=== PATIENT | male | born 1950 | race Hispanic/Latino ===

== ENCOUNTER 2018-06-09 20:34 | Emergency (ER) | payer BC, OTHER ==
[~2018-06-09] VITALS: Ht 175.3 cm; Wt 86.2 kg
[2018-06-09] MEDS ORDERED: PANTOPRAZOLE 40 MG 10ML VIAL IV STA (21:13)
[2018-06-09] MEDS ORDERED: SODIUM CHLORIDE 0.9% 1000ML 1,000 ML IV STA ×2 (21:13→23:26)
[2018-06-09] MEDS ORDERED: ONDANSETRON HCL INJ 2 MG/ML VIAL IV STA (21:13)
[2018-06-09 21:35] LABS: BASOPHILS % 0.3 % (0.0-1.0); HEMATOCRIT 44.9 % (38.2-49.6); HEMOGLOBIN 15.5 g/dL (14.0-18.0); LYMPHOCYTES # (AUTO) 0.5 (1.0-3.2); MEAN CORPUSCULAR HEMOGLOBIN 29.1 pg (28-32); MEAN CORPUSCULAR HGB CONC 34.5 g/dL (31-35); MEAN CORPUSCULAR VOLUME 84.2 fL (81-99); MONOCYTES # (AUTO) 0.7 (0.2-0.8); MONOCYTES % 6.2 % (4.4-11.3); NEUTROPHILS # (AUTO) 10.3 (2.1-6.9); NEUTROPHILS % 89.2 % (38.7-80.0); PLATELET COUNT 142 x10e3/uL (140-360); RED BLOOD COUNT 5.33 x10e6/uL (4.3-5.7)
[2018-06-09 21:40] LABS: INR 1.23; PROTHROMBIN TIME 14.6 seconds (11.9-14.5)
[2018-06-09 21:41] LABS: PARTIAL THROMBOPLASTIN TIME 30.9 seconds (23.8-35.5)
[2018-06-09 21:50] LABS: ALBUMIN 3.6 g/dL (3.5-5.0); ALBUMIN/GLOBULIN RATIO 0.9 (0.8-2.0); ANION GAP 17.5 mmol/L (8-16); CALCIUM 9.1 mg/dL (8.4-10.2); CREATININE, SERUM 1.54 mg/dL (0.72-1.25); MAGNESIUM 1.8 MG/DL (1.3-2.1); POTASSIUM 3.5 mmol/L (3.5-5.1)
[2018-06-09 22:10] LABS: CREATINE KINASE MB 0.2 ng/mL (0-5.0); THYROID STIMULATING HORMONE 1.687 uIU/mL (0.350-4.940)
[2018-06-09 22:12] LABS: B-TYPE NATRIURETIC PEPTIDE2 29.8 pg/mL (0-100)
--- NOTE | 2018-06-09 22:28 | Diagnostic Imaging Report ---
EXAM: CHEST SINGLE (PORTABLE), AP 1 view INDICATION: Fall COMPARISON: None FINDINGS: LINES/TUBES: None LUNGS: No consolidations or edema. PLEURA: No effusions or pneumothorax. HEART AND MEDIASTINUM: Normal size and contour. BONES AND SOFT TISSUES: No acute findings. IMPRESSION: No acute thoracic abnormality. Signed by: Dr. Rajwinder Cruz M.D. on 06/09/2018 10:25 PM
--- NOTE | 2018-06-09 22:39 | Diagnostic Imaging Report ---
History: Comparison studies: None Technique: Axial images were obtained from the skull base to the vertex. Coronal and sagittal reconstructions obtained from the axial data. Findings: Scalp/skull: No abnormalities. No fractures, blastic or lytic lesions. Extra-axial spaces: No masses. No fluid collections. Brain sulci: Appropriate for age. Ventricles: Normal in size and configuration. No hydrocephalus. Parenchyma: No abnormal densities. No masses, hemorrhage, acute or chronic cortical vascular insults. Sellar/suprasellar region: No abnormalities Craniocervical junction: Patent foramen magnum. No Chiari one malformation. IMPRESSION: No abnormalities Signed by: Dr. Baltazar Nuno M.D. on 06/09/2018 10:35 PM
--- NOTE | 2018-06-09 22:42 | Diagnostic Imaging Report ---
History: Vomiting, diarrhea, headaches Comparison studies: None Technique: Axial images were obtained through the cervical region.. Coronal and sagittal images reconstructed from the axial data.. Intravenous contrast: None Findings: Fractures: None. Soft tissues: No gross abnormalities. Atlantoaxial articulation: Intact. Alignment: Normal lordosis. No scoliosis. Cervicomedullary junction: No abnormalities. The foramen magnum is patent. Vertebrae: No infection or neoplasm. Degenerative changes: Mildly degenerated disks at C4-5 and C6-7. Mild foraminal stenosis on the left at C4-5. Otherwise, patent spinal canal and foramina. IMPRESSION: 1. No acute abnormalities. 2. Cannot adequately evaluate for ligament, spinal cord and or vascular abnormalities. 3. Mild degenerative changes Signed by: Dr. Baltazar Nuno M.D. on 06/09/2018 10:38 PM
[2018-06-09 23:53] VITALS: BP 123/68
[2018-06-09] MEDS ORDERED: AZITHROMYCIN250 MG PO (23:53)
[2018-06-10] MEDS ORDERED: ACETAMINOPHEN 325 MG TAB PO ONE (00:15)
== END 2018-06-10 00:16 | disposition home or self-care (01) ==
LOC: ER 20:34
DX: R19.7 Diarrhea, unspecified (principal); R53.1 Weakness; I10 Essential (primary) hypertension
CPT/HCPCS: 36415; 70450; 71045; 72125; 80053; 82550; 82553; 83605; 83690; 83735; 83880; 84443; 84484; 85025; 85610; 85730; 87040; 93005; 99284; J2405; J7030

== ENCOUNTER 2018-08-26 10:44 | Observation (INO) | payer OTHER ==
[~2018-08-26] VITALS: Ht 175.3 cm; Wt 86.2 kg
[~2018-08-26 10:44] MED LIST: AZITHROMYCIN250 MG PO
--- OUTSIDE RECORDS SUMMARY | 2018-08-26 10:47 | XMS REPORT ---
[facility] Address Unknown Phone Unavailable Care Team Providers Care Cogeneration Technician Name Role Phone Deandra GACRIA Unavailable Unavailable Problems This patient has no known problems. Allergies, Adverse Reactions, Alerts This patient has no known allergies or adverse reactions. Medications This patient has no known medications. Results Test Description Test Time Test Comments Text Results Atomic Results Result Comments CT CERVICAL SPINE WO 2018-06-09 22:36:00 [place] [address] Patient Name: LUTHER DAVIS MR #: [id number] : 1950 Age/Sex: 67/M Req #: [id number] [facility] Physician: Ordered by: GREG GARCIA MD Report #: [id number] Location: ER Room/Bed: Procedure: [id number] CT/CT CERVICAL SPINE WO Exam Date: 06/09/18 Exam Time: 2150 REPORT STATUS: Signed ADDENDUM #1 Dose modulation, iterative reconstruction, and/or weight based adjustment of the mA/kV was utilized to reduce the radiation dose to as low as reasonably achievable. Signed by: Dr. Baltazar Nuno M.D. on 06/24/2018 9:36 AM ORIGINAL REPORT History: Vomiting, diarrhea, headaches Comparison studies: None Technique: Axial images were obtained through the cervical region.. Coronal and sagittal images reconstructed from the axial data.. Intravenous contrast: None Findings: Fractures: None. Soft tissues: No gross abnormalities. Atlantoaxial articulation: Intact. Alignment: Normal lordosis. No scoliosis. Cervicomedullary junction: No abnormalities. The foramen magnum is patent. Vertebrae: No infection or neoplasm. Degenerative changes: Mildly degenerated disks at C4-5 and C6-7. Mild foraminal stenosis on the left at C4-5. Otherwise, patent spinal canal and foramina. IMPRESSION: 1. No acute abnormalities. 2. Cannot adequately evaluate for ligament, spinal cord and or vascular abnormalities. 3. Mild degenerative changes Signed by: Dr. Baltazar Nuno M.D. on 06/09/2018 10:38 PM Dictated By: BALTAZAR NUNO MD, MD [id number] Transcribed By: LEOBARDO on 06/09/18 0330 COPY TO: GREG GARCIA MD CT BRAIN WO 2018-06-09 22:34:00 [place] [address] Patient Name: LUTHER DAVIS MR #: [id number] : 1950 Age/Sex: 67/M Req #: [id number] Adm Physician: Ordered by: GREG GARCIA MD Report #: [id number] Location: ER Room/Bed: Procedure: [id number] CT/CT BRAIN WO Exam Date: 06/09/18 Exam Time: 2150 REPORT STATUS: Signed ADDENDUM #1 Dose modulation, iterative reconstruction, and/or weight based adjustment of the mA/kV was utilized to reduce the radiation dose to as low as reasonably achievable. Signed by: Dr. Baltazar Nuon M.D. on 06/24/2018 9:37 AM ORIGINAL REPORT History: Comparison studies: None Technique: Axial images were obtained from the skull base to the vertex. Coronal and sagittal reconstructions obtained from the axial data. Findings: Scalp/skull: No abnormalities. No fractures, blastic or lytic lesions. Extra-axial spaces: No masses. No fluid collections. Brain sulci: Appropriate for age. Ventricles: Normal in size and configuration. No hydrocephalus. Parenchyma: No abnormal densities. No masses, hemorrhage, acute or chronic cortical vascular insults. Sellar/suprasellar region: No abnormalities Craniocervical junction: Patent foramen magnum. No Chiari one malformation. IMPRESSION: No abnormalities Signed by: Dr. Baltazar Nuno M.D. on 06/09/2018 10:35 PM Dictated By: BALTAZAR NUNO MD, MD 0937 Transcribed By: LEOBARDO on 06/09/18 9835 COPY TO: GREG GARCIA MD CHEST SINGLE (PORTABLE) 2018-06-09 22:19:00 [place] [address] Patient Name: LUTHER DAVIS MR #: [id number] : 1950 Age/Sex: 67/M Req #: [id number] Adm Physician: Ordered by: GREG GARCIA MD Report #: [id number] Location: ER Room/Bed: Procedure: [id number] DX/CHEST SINGLE (PORTABLE) Exam Date: Exam Time: REPORT STATUS: Signed EXAM: CHEST SINGLE (PORTABLE), AP 1 view INDICATION: Fall COMPARISON: None FINDINGS: LINES/TUBES: None LUNGS: No consolidations or edema. PLEURA: No effusions or pneumothorax. HEART AND MEDIASTINUM: Normal size and contour. BONES AND SOFT TISSUES: No acute findings. IMPRESSION: No acute thoracic abnormality. Signed by: Dr. Isabell Cruz M.D. on 06/09/2018 10:25 PM Dictated By: ISABELL CRUZ MD 24 Transcribed By: LEOBARDO on 06/09/182224 COPY TO: GREG GARCIA MD
[2018-08-26] MEDS ORDERED: FINASTERIDE5 MG PO (12:19)
[2018-08-26] MEDS ORDERED: LISINOPRIL-HCT1 EAC2 PO (12:19)
[2018-08-26 12:44] LABS: BASOPHILS % 0.6 % (0.0-1.0); EOSINOPHILS # (AUTO) 0.1 (0.0-0.4); EOSINOPHILS % 1.3 % (0.0-6.0); LYMPHOCYTES # (AUTO) 0.9 (1.0-3.2); LYMPHOCYTES % 17.6 % (18.0-39.1); MEAN CORPUSCULAR HEMOGLOBIN 27.9 pg (28-32); MEAN CORPUSCULAR HGB CONC 32.6 g/dL (31-35); MEAN CORPUSCULAR VOLUME 85.7 fL (81-99); MONOCYTES # (AUTO) 0.3 (0.2-0.8); MONOCYTES % 6.3 % (4.4-11.3); NEUTROPHILS # (AUTO) 3.9 (2.1-6.9); NEUTROPHILS % 73.8 % (38.7-80.0); PLATELET COUNT 126 x10e3/uL (140-360); RED BLOOD COUNT 5.02 x10e6/uL (4.3-5.7); RED CELL DISTRIBUTION WIDTH 13.6 % (11.7-14.4)
[2018-08-26 12:57] LABS: INR 0.94; PROTHROMBIN TIME 13.4 seconds (11.9-14.5)
[2018-08-26 13:09] LABS: ALBUMIN 3.9 g/dL (3.5-5.0); ALBUMIN/GLOBULIN RATIO 1.3 (0.8-2.0); ANION GAP 12.9 mmol/L (8-16); CALCIUM 9.1 mg/dL (8.4-10.2); CREATININE, SERUM 1.24 mg/dL (0.72-1.25); POTASSIUM 3.9 mmol/L (3.5-5.1)
[2018-08-26] MEDS ORDERED: ONDANSETRON HCL INJ 2 MG/ML VIAL IV PRN (14:15)
[2018-08-26] MEDS ORDERED: MORPHINE SULFATE 2 MG/ML SYR IV PRN (14:15)
[2018-08-26] MEDS ORDERED: SODIUM CHLORIDE FLUSH 10 ML SYR INJ PRN (14:15)
[2018-08-26] MEDS: ENOXAPARIN SODIUM INJ 100 MG/ML SYR SC SCH (14:25)
[2018-08-26] MEDS ORDERED: MORPHINE SULFATE INJ 4 MG/ML INJ IV PRN (14:30)
[2018-08-26 16:20] VITALS: BP 141/76
[2018-08-26 16:30] VITALS: BP 141/76
[2018-08-26 17:06] VITALS: BP 141/76
[2018-08-26] MEDS: NEBIVOLOL 10 MG TAB PO SCH (19:15)
[2018-08-26 20:30] VITALS: BP 121/66
[2018-08-26 20:31] VITALS: BP 121/66
[2018-08-27 00:23] VITALS: BP 118/71
[2018-08-27] MEDS: ENOXAPARIN SODIUM INJ 100 MG/ML SYR SC SCH ×2 (02:45→15:41)
[2018-08-27 04:30] VITALS: BP 131/84
[2018-08-27 05:43] LABS: INR 0.96; PROTHROMBIN TIME 13.7 seconds (11.9-14.5)
[2018-08-27 05:44] LABS: PARTIAL THROMBOPLASTIN TIME 39.7 seconds (23.8-35.5)
[2018-08-27 05:56] LABS: BASOPHILS % 0.6 % (0.0-1.0); EOSINOPHILS # (AUTO) 0.1 (0.0-0.4); EOSINOPHILS % 2.3 % (0.0-6.0); HEMATOCRIT 41.7 % (38.2-49.6); HEMOGLOBIN 13.7 g/dL (14.0-18.0); LYMPHOCYTES # (AUTO) 1.6 (1.0-3.2); LYMPHOCYTES % 30.7 % (18.0-39.1); MEAN CORPUSCULAR HEMOGLOBIN 28.4 pg (28-32); MEAN CORPUSCULAR HGB CONC 32.9 g/dL (31-35); MEAN CORPUSCULAR VOLUME 86.3 fL (81-99); MONOCYTES # (AUTO) 0.4 (0.2-0.8); MONOCYTES % 8.2 % (4.4-11.3); NEUTROPHILS % 57.8 % (38.7-80.0); PLATELET COUNT 133 x10e3/uL (140-360); RED BLOOD COUNT 4.83 x10e6/uL (4.3-5.7); RED CELL DISTRIBUTION WIDTH 13.5 % (11.7-14.4)
[2018-08-27 06:06] LABS: ANION GAP 13.9 mmol/L (8-16); CALCIUM 9.3 mg/dL (8.4-10.2); CREATININE, SERUM 1.28 mg/dL (0.72-1.25); POTASSIUM 4.9 mmol/L (3.5-5.1)
[2018-08-27 08:28] VITALS: BP 116/70
[2018-08-27] MEDS: NEBIVOLOL 10 MG TAB PO SCH (09:00)
[2018-08-27] MEDS ORDERED: FINASTERIDE 5 MG TAB PO SCH (09:00)
--- NOTE | 2018-08-27 09:34 | History and Physical ---
SHORTSTAY Patient is in observation. CHIEF COMPLAINT: Right-sided DVT. HISTORY OF PRESENT ILLNESS: Patient is a 67-year-old male who came in with right lower extremity swelling and pain. Patient had a previous DVT of the right lower extremity. He stopped his Coumadin some time ago. Patient came in with a spontaneous increase in pain. He has no traveling history. No trauma. His previous DVT was secondary to his right ankle sprain. Patient is otherwise stable. PAST MEDICAL HISTORY: Hypertension, recurrent DVT, dyslipidemia and enlarged prostate. PAST SURGICAL HISTORY: Noncontributory. SOCIAL HISTORY: Patient does not smoke or use alcohol. No recreational drugs. HOME MEDICATIONS: List reviewed. ALLERGIES: NO KNOWN ALLERGIES. REVIEW OF SYSTEMS: As mentioned. PHYSICAL EXAMINATION GENERAL: The patient is not in acute distress. VITAL SIGNS: Temperature is 98, blood pressure 131/84, pulse rate 65, respirations 18. HEENT: Normocephalic, atraumatic and anicteric. NECK: Supple grossly. PULMONARY: Clear. CARDIOVASCULAR: Regular rate and rhythm. ABDOMEN: Soft, unremarkable. EXTREMITIES: Right thigh swelling, significantly diminished after Lovenox. NEUROLOGIC: No focal deficits. LABS: Sodium is 139, potassium 4.9, chloride 103, bicarb 27, BUN 19, creatinine 1.3, glucose 101. WBC is 5.2, hemoglobin 13.7, hematocrit 41.7, and platelets 133. IMPRESSION 1. Right lower extremity deep venous thrombosis. 2. Hypertension. PLAN: CT of chest, abdomen and pelvis without IV contrast due to chronic kidney disease. If the test is negative, the patient will go home with Xarelto. The patient is otherwise stable at this time. He is comfortable. Job#: [id number]
[2018-08-27 11:58] VITALS: BP 135/72
[2018-08-27] MEDS ORDERED: SODIUM CHLORIDE 0.9% 1000ML 1,000 ML IV SCH (13:15)
[2018-08-27 15:43] VITALS: BP 138/71
[2018-08-27] MEDS ORDERED: SODIUM CHLORIDE 0.9% 50ML 50 ML ONE (16:09)
[2018-08-27] MEDS ORDERED: IOPAMIDOL 370 MG/ML 200 ML INFUS..BTL INJ ONE (16:09)
[2018-08-27 18:03] VITALS: BP 138/71
--- NOTE | 2018-08-27 18:14 | Diagnostic Imaging Report ---
EXAMINATION: CT scan of the chest with contrast. TECHNIQUE: Spiral CT images of the chest were performed from the lung apices to the level of the adrenal glands after the intravenous administration of 100 cc of Isovue 370. Coronal and sagittal reformatted images were obtained. COMPARISON: None. CLINICAL HISTORY:Rule out malignancy DISCUSSION: LINES/TUBES: None. LUNGS AND AIRWAYS: Bilateral lower lobe dependent atelectasis. Linear subsegmental atelectasis in the left lower lobe and lingula. No consolidation. 5-6 mm nodule in the medial left upper lobe (series 4, image 28). No other nodules. No pulmonary masses. The airways are clear, without endobronchial lesions. PLEURA: No pneumothorax or pleural effusions. HEART AND MEDIASTINUM: The thyroid gland is unremarkable. Heart size is normal. No pericardial effusion. Aorta is nonaneurysmal. Main pulmonary artery is normal in caliber. LYMPH NODES: There is no mediastinal, hilar or axillary lymphadenopathy. ABDOMEN: Please see CT of abdomen and pelvis performed same day for further detail. BONES AND SOFT TISSUES: No aggressive lytic lesions. Soft tissues are grossly unremarkable. IMPRESSION: 1. 5-6 mm nodule in the medial left upper lobe. This is a low risk patient, no further follow-up is indicated per Fleischner Society 2017 guidelines. 2. Mild bilateral lower lobe dependent and left lower lobe and lingular subsegmental atelectasis. Otherwise lungs are clear. Signed by: Dr. Jonny Jennings M.D. on 08/27/2018 6:11 PM
--- NOTE | 2018-08-27 18:27 | Diagnostic Imaging Report ---
EXAMINATION: CT of the abdomen and pelvis with contrast. TECHNIQUE: Spiral CT images of the abdomen and pelvis were performed from the lung bases to the lesser trochanters after the intravenous administration of 100 cc of Isovue 370 and the oral administration of water. Coronal and sagittal reformatted images were obtained. COMPARISON: None. CLINICAL HISTORY:Rule out malignancy DISCUSSION: ABDOMEN/PELVIS: LOWER THORAX:Please see CT chest report from same date for further detail. HEPATOBILIARY: Decreased attenuation of the hepatic parenchyma compared to the spleen, consistent with steatosis. No focal lesions. No intra or extrahepatic biliary ductal dilation. GALLBLADDER: 2 and 4 mm radiopaque densities in the dependent portion of the gallbladder neck, likely representing small stones. No wall thickening or pericholecystic fluid. SPLEEN: No splenomegaly. PANCREAS: No focal masses or ductal dilatation. ADRENALS: No adrenal nodules. KIDNEYS/URETERS: No hydronephrosis, stones, or solid mass lesions. PELVIC ORGANS/BLADDER: Bladder is unremarkable, without focal lesions or wall thickening. Prostate is markedly enlarged, measuring 8.2 x 5.8 x 6.6 cm (estimated volume 163 mL) and protrudes into the inferior and posterior aspect of the bladder. Seminal vesicles are unremarkable. PERITONEUM/RETROPERITONEUM: No free air or fluid. 7-8 mm nodular density right anterior pelvis adjacent to the bladder (series 2, image [id number]), which is indeterminate and may represent an area of prior fat/omental infarct or nonspecific, nonenlarged node. LYMPH NODES: No intra-abdominal, retroperitoneal, pelvic or inguinal lymphadenopathy. VESSELS: The celiac trunk,superior and inferior mesenteric and bilateral renal arteries are patent The portal, superior mesenteric and splenic veins are patent. GI TRACT: No bowel dilation or evidence of obstruction. Appendix is well identified and normal in caliber. No pericolonic inflammatory changes. No intraluminal mass is identified. Stomach is unremarkable. BONES AND SOFT TISSUE: No aggressive lytic lesions. Bilateral fat-containing inguinal hernias. IMPRESSION: 1. No acute abdominopelvic abnormalities. No abdominopelvic masses, free fluid or fluid collections. No adenopathy. 2. Marked prostatomegaly, which protrudes into the inferior and posterior aspect of the bladder. Correlate with serum PSA. 3. Diffuse hepatic steatosis. 4. Cholelithiasis, without CT evidence of cholecystitis. Signed by: Dr. Jonny Jennings M.D. on 08/27/2018 6:24 PM
[2018-08-27] MEDS ORDERED: XARELTO10 MG PO (18:40)
[2018-08-27] MEDS ORDERED: XARELTO20 MG PO (18:41)
[2018-08-27] MEDS ORDERED: BYSTOLIC10 MG PO (18:42)
== END 2018-08-27 19:15 | disposition home or self-care (01) ==
LOC: ER 10:44 → ERHOLD 14:47 → IMCU 16:21
PROVIDERS: ADMIT Internal Medicine; ATTEND Internal Medicine
DX: I82.411 Acute embolism and thrombosis of right femoral vein (principal); I82.431 Acute embolism and thrombosis of right popliteal vein; I10 Essential (primary) hypertension; E78.5 Hyperlipidemia, unspecified; N40.0 Benign prostatic hyperplasia without lower urinary tract symptoms
CPT/HCPCS: 36415 ×2; 71260; 74177; 80048; 80053; 85025 ×2; 85610 ×2; 85730 ×2; 93005; 93971; 99284; G0378 ×2; J1650 ×2; J2405; J7030; Q9967

== ENCOUNTER 2025-06-18 10:51 | Inpatient (IN) | payer MEDICARE, OTHER ==
[~2025-06-18] VITALS: Ht 175.3 cm; Wt 86.2 kg
[2025-06-18] VITALS (7 sets, daily range): BP systolic 148–152; BP diastolic 76–79; PULSE 65–76; RESP 15–20; TEMP 97.3–97.7; O2SAT 97–100
[~2025-06-18 10:51] MED LIST changes: +BYSTOLIC10 MG PO; +FINASTERIDE5 MG PO; +LISINOPRIL-HCT1 EAC2 PO; +XARELTO10 MG PO; +XARELTO20 MG PO
[2025-06-18] MEDS ORDERED: HEPARIN SOD/DEXTROSE 5% 25000 UNIT/250 ML BAG IV SCH (12:15)
[2025-06-18] MEDS ORDERED: ONDANSETRON HCL INJ 2MG/ML 2ML 2 MG/ML VIAL IV PRN (12:30)
[2025-06-18] MEDS ORDERED: Morphine 4mg INJECTION 4 MG/ML INJ IV PRN (12:30)
[2025-06-18 13:01] LABS: BASOPHILS % 0.6 % (0.0-1.0); EOSINOPHILS % 1.2 % (0.0-6.0); LYMPHOCYTES % 15.6 % (18.0-39.1); MONOCYTES % 6.3 % (4.4-11.3); NEUTROPHILS % 75.7 % (38.7-80.0); RED CELL DISTRIBUTION WIDTH 13.6 % (11.7-14.4)
[2025-06-18 13:27] LABS: INR 0.95
[2025-06-18 13:33] LABS: EST GLOMERULAR FILTRATION RATE 56.0 ML/MIN (>=60)
[2025-06-18] MEDS: HEPARIN SOD (PORCINE) 5,000 UNIT/ML VIAL IV ONE (13:52)
[2025-06-18] MEDS: HEPARIN 25,000 UNIT/D5W 250ML 250 ML IV SCH (13:55)
[2025-06-18] MEDS: SODIUM CHLORIDE 0.9% 1000ML 1,000 ML IV SCH (16:28)
[2025-06-19] VITALS (10 sets, daily range): BP systolic 111–159; BP diastolic 67–89; PULSE 64–71; RESP 17–19; TEMP 97.7–98.3; O2SAT 95–100
[2025-06-19] MEDS: HEPARIN 25,000 UNIT/D5W 250ML 250 ML IV SCH (02:40)
[2025-06-19 06:30] LABS: BASOPHILS % 0.7 % (0.0-1.0); EOSINOPHILS % 2.3 % (0.0-6.0); LYMPHOCYTES % 19.0 % (18.0-39.1); MONOCYTES % 8.4 % (4.4-11.3); NEUTROPHILS % 68.7 % (38.7-80.0); RED CELL DISTRIBUTION WIDTH 13.5 % (11.7-14.4)
[2025-06-19 07:06] LABS: EST GLOMERULAR FILTRATION RATE 70.0 ML/MIN (>=60)
[2025-06-19] MEDS: AMLODIPINE BESYLATE 5 MG TAB PO SCH (11:53)
[2025-06-19] MEDS ORDERED: RIVAROXABAN 15 MG TABLET PO SCH (12:00)
[2025-06-19] MEDS: RIVAROXABAN 15 MG TABLET PO SCH (16:53)
[2025-06-20] VITALS (8 sets, daily range): BP systolic 127–161; BP diastolic 66–89; PULSE 68–78; RESP 18–20; TEMP 97.6–98.2; O2SAT 98–100
[2025-06-20] MEDS ORDERED: XARELTO10 MG PO (20:02)
[2025-07-11] MEDS ORDERED: RIVAROXABAN 20 MG TABLET PO SCH (08:00)
== END 2025-06-20 21:30 | disposition home or self-care (01) | DRG 300 ==
LOC: ER 11:27 → ERHOLD 12:25 → MED/SURG3 14:43
PROVIDERS: ADMIT Internal Medicine; ATTEND Internal Medicine
DX: I82.412 Acute embolism and thrombosis of left femoral vein (principal); N17.9 Acute kidney failure, unspecified; I12.9 Hypertensive chronic kidney disease with stage 1 through stage 4 chronic kidney disease, or unspecified chronic kidney disease; N18.9 Chronic kidney disease, unspecified; M32.9 Systemic lupus erythematosus, unspecified; N40.0 Benign prostatic hyperplasia without lower urinary tract symptoms; K21.9 Gastro-esophageal reflux disease without esophagitis; H40.9 Unspecified glaucoma; Z79.01 Long term (current) use of anticoagulants; Z79.899 Other long term (current) drug therapy
CPT/HCPCS: 36415; 80053; 82550; 84484; 85025; 85610; 85730; 93306; 94799; 99252; 99284; J1644; J7030